=== PATIENT | female | born 2000 | race Caucasian/White ===

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

== ENCOUNTER 2018-02-25 16:33 | Emergency (ER) | payer BC ==
[2018-02-25 17:07] VITALS: BP 109/65
--- NOTE | 2018-02-25 17:26 | ED ---
Skin Complaint - HPI Summary HPI Summary: 17-year-old female presents with pruritic rash to bilateral upper legs that started yesterday. She does report that she recently changed detergents. Denies fever, chills, swelling lips, tongue, throat, difficulty breathing, changes in medications, cosmetics, lotions, soaps, or contact with environmental irritants. - History of Current Complaint Chief Complaint: UCSkin Time Seen by Provider: 02/25/18 17:05 Stated Complaint: SKIN COMPLAINT Hx Obtained From: Patient Hx Last Menstrual Period: mirena IUD Onset/Duration: Started Days Ago - 1 Current Severity: Mild Pain Intensity: 1 Skin Location: Other: - Bilateral upper legs Character: Pruritus, Redness Aggravating Symptom(s): Nothing Alleviating Symptom(s): Nothing - Allergy/Home Medications Allergies/Adverse Reactions: Allergies Allergy/AdvReac Type Severity Reaction Status Date / Time apple Allergy Rash Verified 02/25/18 17:04 sulfamethoxazole Allergy Rash Verified 02/25/18 17:04 [From Bactrim] trimethoprim [From Bactrim] Allergy Rash Verified 02/25/18 17:04 PMH/Surg Hx/FS Hx/Imm Hx Previously Healthy: Yes - denies significant past medical history Cardiovascular History: Denies: Hx Pacemaker/ICD Neurological History: Reports: Other Neuro Impairments/Disorders - CURENT SYMPTOMS: HEADACHES WITH SLURRED SPEECH X 5 MONTHS Psychiatric History: Denies: Hx Panic Disorder - Surgical History Surgery Procedure, Year, and Place: EAR TUBES Infectious Disease History: No Infectious Disease History: Denies: History Other Infectious Disease, Traveled Outside the [place] in Last 30 Days - Family History Family History: Noncontributory - Social History Occupation: Employed Full-time Lives: With Family Alcohol Use: Rare Substance Use Type: Reports: None Smoking Status (MU): Never Smoked Tobacco Review of Systems Constitutional: Negative ENT: Negative Cardiovascular: Negative Respiratory: Negative Skin: Other - See HPI All Other Systems Reviewed And Are Negative: Yes Physical Exam Triage Information Reviewed: Yes Vital Signs On Initial Exam: Initial Vitals Temp Pulse Resp BP Pulse Ox 98.5 F 82 16 109/65 99 02/25/18 17:01 02/25/18 17:01 02/25/18 17:01 02/25/18 17:01 02/25/18 17:01 Vital Signs Reviewed: Yes Appearance: Positive: Well-Appearing, No Pain Distress, Well-Nourished Skin: Positive: Warm, Skin Color Reflects Adequate Perfusion, Dry, Other - Eythematous, pruritic rash to proximal bilateral upper legs. No weeping, scaling , or drainage noted. ENT: Positive: Other - Airway intact Respiratory/Lung Sounds: Positive: Clear to Auscultation, Breath Sounds Present Cardiovascular: Positive: Normal, RRR, S1, S2 Neurological: Positive: Alert, Oriented to Person Place, Time Diagnostics - Vital Signs Vital Signs Temp Pulse Resp BP Pulse Ox 02/25/18 17:01 98.5 F 82 16 109/65 99 - Laboratory Lab Statement: Any lab studies that have been ordered have been reviewed, and results considered in the medical decision making process. Course/Dx - Course Course Of Treatment: 17 year old female with onset of pruritic rash to bilateral upper legs. Patient identifies a change in laundry detergent prior to onset and rash consistent with a contact dermatitis therefore will treat with topical steroid. She is to return for any worsening or persistence of symptoms. - Diagnoses Provider Diagnoses: Contact dermatitis Discharge - Sign-Out/Discharge Documenting (check all that apply): Patient Departure All imaging exams completed and their final reports reviewed: No Studies - Discharge Plan Condition: Stable Disposition: HOME Prescriptions: Clobetasol 0.05% OINT* 1 applic TOPICAL BID #1 tube Patient Education Materials: Contact Dermatitis (ED) Referrals: No Primary Care Phys,NOPCP [Primary Care Provider] - Additional Instructions: Your rash appears to be a contact dermatitis. I suspect it may be related to the change in your detergent recently. I would stop using this detergent and rewash any clothing that was washed in the new detergent in case this is the cause. Apply a thin layer of clobatesol ointment to the affected areas twice a day. Do not use for more than 2 weeks. May use over the counter diphenhydramine (Benadryl) as needed for itching. This may cause drowsiness. Return or follow up with primary care provider if there is no improvement in symptoms. Sooner if symptoms worsen. - Billing Disposition and Condition Condition: STABLE Disposition: Home
== END 2018-02-25 17:31 | disposition home or self-care (01) ==
LOC: UCCORT 16:33
DX: L25.9 Unspecified contact dermatitis, unspecified cause (principal); Z88.1 Allergy status to other antibiotic agents
CPT/HCPCS: 99212; G0463

== ENCOUNTER 2018-03-04 08:58 | Emergency (ER) | payer BC ==
[2018-03-04 09:38] VITALS: BP 113/77
--- NOTE | 2018-03-04 10:03 | UC ---
Throat Pain/Nasal Benito HPI - HPI Summary HPI Summary: The patient is a 17-year-old female with sore throat and swollen glands 48 hours. She has had a chronic cough. He denies any fever or chills. She has had mono in the past. 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 - History of Current Complaint Chief Complaint: UCGeneralIllness Stated Complaint: LYMPH NODES SWOLLEN/SORE THROAT Time Seen by Provider: 03/04/18 09:43 Hx Obtained From: Patient Hx Last Menstrual Period: mirena IUD Onset/Duration: Gradual Onset, Lasting Days Severity: Mild Pain Intensity: 4 Pain Scale Used: 0-10 Numeric Cough: Nonproductive Associated Signs & Symptoms: Positive: Negative - Epiglottits Risk Factors Epiglottis Risk Factors: Negative - Allergies/Home Medications Allergies/Adverse Reactions: Allergies Allergy/AdvReac Type Severity Reaction Status Date / Time apple Allergy Rash Verified 03/04/18 09:29 sulfamethoxazole Allergy Rash Verified 03/04/18 09:29 [From Bactrim] trimethoprim [From Bactrim] Allergy Rash Verified 03/04/18 09:29 Home Medications: Home Medications D-Methorphan/PE/Acetaminophen [Daytime Cold Multi-Symp Gelcap] 1 dose PO ONCE [History Confirmed 03/04/18] PMH/Surg Hx/FS Hx/Imm Hx Previously Healthy: Yes - Surgical History Surgical History: Yes Surgery Procedure, Year, and Place: EAR TUBES - Family History Known Family History: Negative: Cardiac Disease, Hypertension Family History: Noncontributory - Social History Alcohol Use: Rare Substance Use Type: None Smoking Status (MU): Never Smoked Tobacco - Immunization History Vaccination Up to Date: Yes Review of Systems Constitutional: Negative Skin: Negative Eyes: Negative ENT: Sore Throat Respiratory: Cough Cardiovascular: Negative Gastrointestinal: Negative Genitourinary: Negative Motor: Negative Neurovascular: Negative Musculoskeletal: Negative Neurological: Negative Psychological: Negative All Other Systems Reviewed And Are Negative: Yes Physical Exam Triage Information Reviewed: Yes Appearance: Well-Appearing, No Pain Distress, Well-Nourished Vital Signs: Initial Vital Signs Temp 98.9 F 03/04/18 09:29 Pulse 98 03/04/18 09:29 Resp 16 03/04/18 09:29 BP 113/77 03/04/18 09:29 Pulse Ox 100 03/04/18 09:29 Vital Signs Reviewed: Yes Eyes: Positive: Conjunctiva Clear ENT: Positive: Pharyngeal erythema, Tonsillar swelling, Tonsillar exudate, Uvula midline. Negative: Trismus, Muffled voice, Hoarse voice Neck: Positive: Supple, Nontender, Enlarged Nodes @ - ant cerv Respiratory: Positive: Lungs clear, Normal breath sounds, No respiratory distress, No accessory muscle use Cardiovascular: Positive: RRR, No Murmur Bowel Sounds: Positive: Present Musculoskeletal: Positive: ROM Intact, No Edema Neurological: Positive: Alert Psychological Exam: Normal Skin Exam: Normal Diagnostics - Laboratory Diagnostic Studies Completed/Ordered: strep (-) Throat Pain/Nasal Course/Dx - Differential Dx/Diagnosis Provider Diagnoses: acute exudative tonsillitis Discharge - Sign-Out/Discharge Documenting (check all that apply): Patient Departure All imaging exams completed and their final reports reviewed: No Studies - Discharge Plan Condition: Stable Disposition: HOME Prescriptions: Cephalexin CAP* [Keflex CAP*] 500 mg PO BID #20 cap Patient Education Materials: Tonsillitis (ED) Forms: *Work Release Referrals: Danyell Verduzco MD [Primary Care Provider] - 3 Days (if not better) Additional Instructions: rest fluids tylenol or advil for pain - Billing Disposition and Condition Condition: STABLE Disposition: Home
== END 2018-03-04 10:10 | disposition home or self-care (01) ==
LOC: UCCORT 08:58
DX: J03.90 Acute tonsillitis, unspecified (principal); Z88.1 Allergy status to other antibiotic agents
CPT/HCPCS: 87651; 99212; G0463

== ENCOUNTER 2018-06-12 17:02 | Emergency (ER) | payer BC ==
[2018-06-12 17:54] VITALS: BP 116/72
[2018-06-12] MEDS ORDERED: Ondansetron ODT TAB* 4 MG PO ONE (17:56)
--- NOTE | 2018-06-12 18:12 | UC ---
FLU HPI - HPI Summary HPI Summary: Pt c/o sudden onset of nausea, vomiting, diarrhea, body aches X 1 day. - History of Current Complaint Chief Complaint: UCGI Stated Complaint: VOMITING Time Seen by Provider: 06/12/18 18:06 Hx Obtained From: Patient Hx Last Menstrual Period: mirana ?: No Onset/Duration: Sudden Onset, Still Present Severity Currently: Moderate Severity Initially: Moderate Pain Intensity: 0 Associated Signs & Symptoms: Positive: Fever, Headache, Vomiting, Diarrhea Related Hx: Possible Flu/Infectious Exposure - Risk Factors Influenza Risk Factors: Negative - Allergy/Home Medications Allergies/Adverse Reactions: Allergies Allergy/AdvReac Type Severity Reaction Status Date / Time apple Allergy Rash Verified 06/12/18 17:54 sulfamethoxazole Allergy Rash Verified 06/12/18 17:54 [From Bactrim] trimethoprim [From Bactrim] Allergy Rash Verified 06/12/18 17:54 PMH/Surg Hx/FS Hx/Imm Hx Previously Healthy: Yes - Surgical History Surgical History: Yes Surgery Procedure, Year, and Place: EAR TUBES - Family History Known Family History: Negative: Cardiac Disease, Hypertension Family History: Noncontributory - Social History Occupation: Employed Full-time Lives: With Family Alcohol Use: Rare Substance Use Type: None Smoking Status (MU): Never Smoked Tobacco Have You Smoked in the Last Year: No - Immunization History Vaccination Up to Date: Yes Review of Systems All Other Systems Reviewed And Are Negative: Yes Constitutional: Positive: Fever, Chills, Fatigue Skin: Positive: Negative Eyes: Positive: Negative ENT: Positive: Negative Respiratory: Positive: Negative Cardiovascular: Positive: Negative Gastrointestinal: Positive: Abdominal Pain, Vomiting, Diarrhea, Nausea Genitourinary: Positive: Negative Motor: Positive: Negative Neurovascular: Positive: Negative Musculoskeletal: Positive: Myalgia Neurological: Positive: Headache Psychological: Positive: Negative Is Patient Immunocompromised?: No Physical Exam Triage Information Reviewed: Yes Appearance: Ill-Appearing Vital Signs: Initial Vital Signs Temp 97.0 F 06/12/18 17:52 Pulse 89 06/12/18 17:52 Resp 16 06/12/18 17:52 BP 116/72 06/12/18 17:52 Pulse Ox 99 06/12/18 17:52 Vital Signs Reviewed: Yes Eye Exam: Normal ENT Exam: Normal Dental Exam: Normal Neck exam: Normal Respiratory Exam: Normal Respiratory: Positive: No respiratory distress Abdominal Exam: Other - c/o generalizeed tenderness Musculoskeletal Exam: Normal Neurological Exam: Normal Psychological Exam: Normal Skin Exam: Normal Flu Course/Dx - Differential Dx/Diagnosis Differential Diagnosis/HQI/PQRI: Influenza Provider Diagnosis: Gastroenteritis Discharge - Sign-Out/Discharge Documenting (check all that apply): Patient Departure All imaging exams completed and their final reports reviewed: No Studies - Discharge Plan Condition: Stable Disposition: HOME Prescriptions: Ondansetron HCl [Zofran] 8 mg PO Q8H PRN #15 tablet PRN Reason: Nausea Patient Education Materials: Gastroenteritis (ED), Acute Nausea and Vomiting ( ED), Acute Diarrhea (ED) Referrals: Danyell Verduzco MD [Primary Care Provider] - If Needed - Billing Disposition and Condition Condition: STABLE Disposition: Home
== END 2018-06-12 18:17 | disposition home or self-care (01) ==
LOC: UCCORT 17:02
DX: K52.9 Noninfective gastroenteritis and colitis, unspecified (principal); M79.10 Myalgia, unspecified site; Z91.018 Allergy to other foods
CPT/HCPCS: 99212; A9270-GY; G0463

== ENCOUNTER 2018-11-30 12:05 | Emergency (ER) | payer BC ==
--- NOTE | 2018-11-30 12:16 | UC ---
Complaint Female HPI - HPI Summary HPI Summary: Burning on urination with bloody urine today. No hx of frequent UTI's. - History Of Current Complaint Stated Complaint: URINARY COMPLAINT Time Seen by Provider: 11/30/18 12:14 Hx Obtained From: Patient Hx Last Menstrual Period: mirana ?: No Onset/Duration: Gradual Onset Timing: Intermittent Severity Initially: Mild Severity Currently: Mild Character: Burning Aggravating Factor(s): Urination Associated Signs And Symptoms: Positive: Negative. Negative: Vaginal Bleeding/ Discharge, Vaginal Discharge - Allergies/Home Medications Allergies/Adverse Reactions: Allergies Allergy/AdvReac Type Severity Reaction Status Date / Time apple Allergy Rash Verified 11/30/18 12:13 sulfamethoxazole Allergy Rash Verified 11/30/18 12:13 [From Bactrim] trimethoprim [From Bactrim] Allergy Rash Verified 11/30/18 12:13 PMH/Surg Hx/FS Hx/Imm Hx Previously Healthy: Yes - Surgical History Surgical History: Yes Surgery Procedure, Year, and Place: EAR TUBES - Family History Known Family History: Negative: Cardiac Disease, Hypertension Family History: Noncontributory - Social History Alcohol Use: Rare Substance Use Type: None Smoking Status (MU): Never Smoked Tobacco Have You Smoked in the Last Year: No - Immunization History Vaccination Up to Date: Yes Review of Systems All Other Systems Reviewed And Are Negative: Yes Genitourinary: Positive: Dysuria, Hematuria, Frequency, Urgency. Negative: Vaginal/Penile Burning, Vaginal/Penile Itching, Vaginal/Penile Discharge, Vaginal/Penile Pain, Vaginal/Penile Tenderness Is Patient Immunocompromised?: No Physical Exam Triage Information Reviewed: Yes Appearance: Well-Appearing, No Pain Distress, Well-Nourished Vital Signs Reviewed: Yes Eyes: Positive: Conjunctiva Clear Respiratory: Positive: Lungs clear, Normal breath sounds, No respiratory distress, No accessory muscle use Cardiovascular: Positive: RRR, No Murmur, Pulses Normal, Brisk Capillary Refill Abdomen Description: Positive: Nontender, No Organomegaly, Soft. Negative: CVA Tenderness (R), CVA Tenderness (L) Bowel Sounds: Positive: Present Musculoskeletal Exam: Normal Neurological Exam: Normal Psychological Exam: Normal Skin Exam: Normal Complaint Female Dx - Course Course Of Treatment: U/A positive for UTI. Urine HCG negative. Pt. comfortable here. - Differential Dx/Diagnosis Provider Diagnosis: UTI (urinary tract infection) Discharge - Sign-Out/Discharge Documenting (check all that apply): Patient Departure All imaging exams completed and their final reports reviewed: No Studies - Discharge Plan Condition: Fair Disposition: HOME Prescriptions: Cephalexin CAP* [Keflex 500 CAP*] 500 mg PO TID 7 Days #21 cap Phenazopyridine TAB* [Pyridium 100 mg TAB*] 100 mg PO TID PRN #6 tab PRN Reason: Pain Patient Education Materials: Urinary Tract Infection in Women (DC) Referrals: Danyell Verduzco MD [Primary Care Provider] - Additional Instructions: Increase fluids, go to ER if you develop fever, chills, back pain, vomiting. - Billing Disposition and Condition Condition: FAIR Disposition: Home
[2018-11-30 12:18] VITALS: BP 107/65
[2018-11-30] MEDS ORDERED: Phenazopyridine TAB* 100 MG PO ONE (12:23)
== END 2018-11-30 12:49 | disposition home or self-care (01) ==
LOC: UCCORT 12:05
DX: N39.0 Urinary tract infection, site not specified (principal); R31.9 Hematuria, unspecified
CPT/HCPCS: 81003; 84702; 87077; 87086; 87186; 99212; A9270-GY; G0463

== ENCOUNTER 2019-04-12 14:24 | Emergency (ER) | payer BC, OTHER ==
[2019-04-12 14:53] VITALS: BP 103/52
--- NOTE | 2019-04-12 15:21 | UC ---
Complaint Female HPI - HPI Summary HPI Summary: 18-year-old female who has had burning on urination and frequency since yesterday. She did have some blood in her urine last evening so she went to the store and got some cranberry juice which helped symptoms. She continues to have the burning but no further blood. - History Of Current Complaint Chief Complaint: UCGU Stated Complaint: URINARY Time Seen by Provider: 04/12/19 15:07 Hx Obtained From: Patient Hx Last Menstrual Period: ?: No Onset/Duration: Gradual Onset Timing: Intermittent Severity Initially: Mild Severity Currently: Mild Pain Intensity: 4 Character: Burning Aggravating Factor(s): Urination Associated Signs And Symptoms: Positive: Negative - Allergies/Home Medications Allergies/Adverse Reactions: Allergies Allergy/AdvReac Type Severity Reaction Status Date / Time apple Allergy Rash Verified 04/12/19 14:47 Sulfa (Sulfonamide Allergy Unknown Verified 04/12/19 14:47 Antibiotics) Reaction Details sulfamethoxazole Allergy Rash Verified 04/12/19 14:47 [From Bactrim] trimethoprim [From Bactrim] Allergy Rash Verified 04/12/19 14:47 PMH/Surg Hx/FS Hx/Imm Hx Previously Healthy: Yes - Surgical History Surgical History: Yes Surgery Procedure, Year, and Place: EAR TUBES - Family History Known Family History: Negative: Cardiac Disease, Hypertension Family History: Noncontributory - Social History Lives: With Family Alcohol Use: Rare Substance Use Type: None Smoking Status (MU): Former Smoker Have You Smoked in the Last Year: No When Did the Patient Quit Smoking/Using Tobacco: July 2016 - Immunization History Vaccination Up to Date: Yes Review of Systems All Other Systems Reviewed And Are Negative: Yes Genitourinary: Positive: Dysuria, Hematuria - Mild hematuria last evening which resolved after drinking cranberry juice today., Frequency, Urgency Is Patient Immunocompromised?: No Physical Exam Triage Information Reviewed: Yes Appearance: Well-Appearing, No Pain Distress, Well-Nourished Vital Signs: Initial Vital Signs Temp 99.1 F 04/12/19 14:47 Pulse 85 04/12/19 14:47 Resp 16 04/12/19 14:47 BP 103/52 04/12/19 14:47 Pulse Ox 100 04/12/19 14:47 Vital Signs Reviewed: Yes Eyes: Positive: Conjunctiva Clear Respiratory: Positive: Lungs clear, Normal breath sounds, No respiratory distress, No accessory muscle use Cardiovascular: Positive: RRR, No Murmur, Pulses Normal, Brisk Capillary Refill Abdomen Description: Positive: Nontender, No Organomegaly, Soft. Negative: CVA Tenderness (R), CVA Tenderness (L), Distended, Guarding, Hepatomegaly, McBurney' s Point Tenderness, Splenomegaly Bowel Sounds: Positive: Present Musculoskeletal Exam: Normal Neurological Exam: Normal Psychological Exam: Normal Skin Exam: Normal Complaint Female Dx - Course Course Of Treatment: Patient is comfortable here. I'm going to treat her with Macrobid 100 mg by mouth twice a day 7 days, with a definite follow-up to her primary care provider if no improvement in 2 or 3 days. - Differential Dx/Diagnosis Provider Diagnosis: UTI (urinary tract infection) Discharge ED - Sign-Out/Discharge Documenting (check all that apply): Patient Departure All imaging exams completed and their final reports reviewed: No Studies - Discharge Plan Condition: Good Disposition: HOME Prescriptions: Nitrofurantoin Monohyd/M-Cryst [Macrobid 100 mg Capsule] 100 mg PO BID 10 Days # 20 cap Patient Education Materials: Urinary Tract Infection in Women (DC) Referrals: Danyell Verduzco MD [Primary Care Provider] - Additional Instructions: Increase fluids, follow-up with your primary care provider if no improvement in 2 or 3 days. Go to the emergency room if you develop fever, chills, back pain and/or vomiting and unable to keep the medicine down. - Billing Disposition and Condition Condition: GOOD Disposition: Home
== END 2019-04-12 15:27 | disposition home or self-care (01) ==
LOC: UCCORT 14:24
DX: N39.0 Urinary tract infection, site not specified (principal); R31.9 Hematuria, unspecified; Z91.018 Allergy to other foods; Z88.2 Allergy status to sulfonamides
CPT/HCPCS: 81003; 84702; 87077; 87086; 87186; 99212; G0463

== ENCOUNTER 2019-04-27 18:35 | Emergency (ER) | payer OTHER ==
[2019-04-27 18:49] VITALS: BP 105/63
--- NOTE | 2019-04-27 19:00 | UC ---
Throat Pain/Nasal Benito HPI - HPI Summary HPI Summary: 18 y/o female presents to the urgent care c/o Bilateral jaw pain and tension radiating into her neck. Pt state she has a sore throat, headache, post nasal drip. Symptoms x2 days. Pt has dental hx of JMDT. - History of Current Complaint Chief Complaint: UCDentalProblem Stated Complaint: JAW/SINUS/NECK PAIN,MATTHEW Time Seen by Provider: 04/27/19 18:58 Hx Obtained From: Patient Hx Last Menstrual Period: 04/20/19 Pain Intensity: 8 - Allergies/Home Medications Allergies/Adverse Reactions: Allergies Allergy/AdvReac Type Severity Reaction Status Date / Time apple Allergy Rash Verified 04/27/19 18:44 Sulfa (Sulfonamide Allergy Unknown Verified 04/27/19 18:44 Antibiotics) Reaction Details sulfamethoxazole Allergy Rash Verified 04/27/19 18:44 [From Bactrim] trimethoprim [From Bactrim] Allergy Rash Verified 04/27/19 18:44 Home Medications: Home Medications Ibuprofen TAB* [Advil TAB*] 400 mg PO ONCE 04/27/19 [History Confirmed 04/27/19] PMH/Surg Hx/FS Hx/Imm Hx - Surgical History Surgical History: Yes Surgery Procedure, Year, and Place: EAR TUBES - Family History Known Family History: Negative: Cardiac Disease, Hypertension Family History: Noncontributory - Social History Alcohol Use: Rare Substance Use Type: None Smoking Status (MU): Former Smoker Have You Smoked in the Last Year: No When Did the Patient Quit Smoking/Using Tobacco: July 2016 - Immunization History Vaccination Up to Date: Yes Physical Exam Vital Signs: Initial Vital Signs Temp 99.4 F 04/27/19 18:44 Pulse 86 04/27/19 18:44 Resp 16 04/27/19 18:44 BP 105/63 04/27/19 18:44 Pulse Ox 99 04/27/19 18:44 Throat Pain/Nasal Course/Dx - Differential Dx/Diagnosis Differential Diagnosis/HQI/PQRI: Laryngitis, Mononucleosis, Otitis Media, Pharyngitis, Sinusitis, Tonsillitis, URI, Other - TMJ Provider Diagnosis: Acute bacterial sinusitis, Pharyngitis Discharge ED - Sign-Out/Discharge Documenting (check all that apply): Patient Departure - d/C home All imaging exams completed and their final reports reviewed: No Studies - Discharge Plan Condition: Stable Disposition: HOME Prescriptions: Amoxicillin PO (*) [Amoxicillin 875 MG (*)] 875 mg PO BID #19 tab Fluticasone NASAL SPRAY 50MCG* [Flonase NASAL SPRAY 50MCG*] 2 spray BOTH NARES DAILY #1 btl Patient Education Materials: Sinusitis (ED), Pharyngitis (ED) Referrals: [facility] [place] [facility]ERR[facility] [Outside] - 3 Days Additional Instructions: 1- Please increase fluid intake and rest. take full course of antibiotics to avoid resistance. Take yogurts w/ probiotics or Culturelle to protect your GI system 2-Use Flonase as directed to help drain fluid. Also buy saline drops to clear sinuses 3-Continue taking Ibuprofen PO 600mg and alternate w/ Tylenol PO q6-8hrs prns after meals top alleviate fever, swelling and pain 4-Please f/u w/ your PCP in 3 days if symptoms do not improve for further management and treatment - Billing Disposition and Condition Condition: STABLE Disposition: Home
[2019-04-27] MEDS ORDERED: Acetaminophen TAB* 325 MG PO ONE (19:15)
[2019-04-27] MEDS ORDERED: Amoxicillin PO (*) 500 MG CAP PO ONE (19:16)
== END 2019-04-27 20:03 | disposition home or self-care (01) ==
LOC: UCCORT 18:35
DX: J01.90 Acute sinusitis, unspecified (principal); J02.9 Acute pharyngitis, unspecified; B96.89 Other specified bacterial agents as the cause of diseases classified elsewhere; Z91.018 Allergy to other foods; Z88.2 Allergy status to sulfonamides; Z88.1 Allergy status to other antibiotic agents; Z87.891 Personal history of nicotine dependence
CPT/HCPCS: 87651; 99212; A9270-GY; G0463

== ENCOUNTER 2019-06-17 16:28 | Emergency (ER) | payer OTHER ==
--- OUTSIDE RECORDS SUMMARY | 2019-06-17 17:09 | XMS REPORT | Continuity of Care Document ---
:2000 External Reference #:[id number] Author Name Power Azevedo M.D. (transmitted by agent of provider Catie Dodson) Address [address] [place] [address] Problems Description No Information Available Social History Type Date Description Comments Sex Unknown Tobacco Use Start: Unknown End: Used To Smoke Cigarettes But Unknown Quit. ETOH Use Rare Use Of Alcohol Recreational Drug Use Has Used In Past Allergies, Adverse Reactions, Alerts Active Allergies Reaction Severity Comments Date sulfa 05/27/2019 Medications Active Medications SIG Qnty Indications Ordering Provider Date Doxycycline Hyclate one tab twice Unknown 100mg daily 10 days Tablets Immunizations Description No Information Available Vital Signs Date Vital Result Comment 05/27/2019 4:31pm Weight 153.00 lb Height 66 inches 5'6" BMI (Body Mass Index) 24.7 kg/m2 BP Systolic 94 mmHg BP Diastolic 60 mmHg Heart Rate 83 /min O2 % BldC Oximetry 96 % Body Temperature 98.3 F Pain Level 0 Results Description No Information Available Procedures Description No Information Available Medical Devices Description No Information Available Encounters Description No Information Available Assessments Description No Information Available Plan of Treatment No Information Available Functional Status Description No Information Available Mental Status Description No Information Available Referrals Description No Information Available
--- OUTSIDE RECORDS SUMMARY | 2019-06-17 17:09 | XMS REPORT | Continuity of Care Document ---
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 - Family Problems Description No Information Available Social History Type Date Description Comments Sex Unknown Tobacco Use Start: Unknown Patient denies history of smoking Smoking Status Reviewed: 05/22/19 Patient denies history of smoking Allergies, Adverse Reactions, Alerts Description No Known Drug Allergies Medications Active Medications SIG Qnty Indications Ordering Provider Date Doxycycline Hyclate take 1 tablet by 14caps J01.10 [place], 05/22/2019 mouth twice a Vilma Ngo, FINANCIAL SYSTEMS ANALYST 100mg Capsules day x 7 days Prednisone 1 tablet daily x 4tabs J01.10 [place], 05/22/2019 20mg Tablets 4 days Vilma Huber, FINANCIAL SYSTEMS ANALYST History Medications No Active Medications Unknown 05/22/2019 - 05/22/2019 Immunizations Description No Information Available Vital Signs Date Vital Result Comment 05/22/2019 4:41pm BP Systolic 113 mmHg BP Diastolic 73 mmHg Body Temperature 98.7 F Heart Rate 85 /min Respiratory Rate 18 /min Weight 171.25 lb O2 % BldC Oximetry 97 % Results Description No Information Available Procedures Description No Information Available Medical Devices Description No Information Available Encounters Type Date Location Provider Dx Diagnosis Office Visit 05/22/2019 Walk In [facility] [place] J01.10 Acute frontal 4:30p Vilma Ngo, FINANCIAL SYSTEMS ANALYST sinusitis, unspecified Assessments Date Code Description Provider 05/22/2019 J01.10 Acute frontal sinusitis, unspecified Tripathi-Helm, Vilma M., MARIAN Plan of Treatment 05/22/2019 - Vilma Moody, FNPJ01.10 Acute frontal sinusitis, unspecifiedNew Medication:Doxycycline Hyclate 100 mg - take 1 tablet by mouth twice a day x 7 daysPrednisone 20 mg - 1 tablet daily x 4 daysComments:Use doxycyline and prednisone as directed. Get lots of rest. Maintain good clear fluid intake to stay well hydrated. Frequent handwashing to prevent spread of germs. Please avoid exposure to tobacco smoke and/or polluted air. You can use OTC cough and cold medications such as Mucinex to help with symptoms. Please follow-up with your primary care provider within 1 week for recheck. You can return to work or school when fever free for 24 hours without the use of fever reducing medication. Functional Status Description No Information Available Mental Status Description No Information Available Referrals Description No Information Available
[2019-06-17 17:16] VITALS: BP 102/64
--- NOTE | 2019-06-17 17:25 | UC ---
Throat Pain/Nasal Benito HPI - HPI Summary HPI Summary: 19 yo female with sore throat x 1 day no n/v no CP or sob - History of Current Complaint Chief Complaint: UCGeneralIllness Stated Complaint: SORE THROAT Time Seen by Provider: 06/17/19 17:12 Hx Obtained From: Patient Hx Last Menstrual Period: 04/20/19 Onset/Duration: Gradual Onset Severity: Mild Pain Intensity: 2 Pain Scale Used: 0-10 Numeric Cough: None Associated Signs & Symptoms: Positive: Nasal Discharge - Epiglottits Risk Factors Epiglottis Risk Factors: Negative - Allergies/Home Medications Allergies/Adverse Reactions: Allergies Allergy/AdvReac Type Severity Reaction Status Date / Time apple Allergy Rash Verified 06/17/19 17:16 Sulfa (Sulfonamide Allergy Unknown Verified 06/17/19 17:16 Antibiotics) Reaction Details sulfamethoxazole Allergy Rash Verified 06/17/19 17:16 [From Bactrim] trimethoprim [From Bactrim] Allergy Rash Verified 06/17/19 17:16 Home Medications: Home Medications Acetaminophen TAB* [Tylenol TAB*] 975 mg PO Q4H PRN 06/17/19 [History Confirmed 06/17/19] PMH/Surg Hx/FS Hx/Imm Hx Previously Healthy: Yes - Surgical History Surgical History: Yes Surgery Procedure, Year, and Place: EAR TUBES - Family History Known Family History: Positive: Diabetes Negative: Cardiac Disease, Hypertension Family History: cancer - Social History Alcohol Use: Rare Substance Use Type: None Smoking Status (MU): Former Smoker Have You Smoked in the Last Year: No When Did the Patient Quit Smoking/Using Tobacco: July 2016 - Immunization History Vaccination Up to Date: Yes Review of Systems All Other Systems Reviewed And Are Negative: Yes Constitutional: Positive: Negative Skin: Positive: Negative Eyes: Positive: Negative ENT: Positive: Sore Throat Respiratory: Positive: Negative Cardiovascular: Positive: Negative Gastrointestinal: Positive: Negative Genitourinary: Positive: Negative Motor: Positive: Negative Neurovascular: Positive: Negative Musculoskeletal: Positive: Negative Neurological: Positive: Headache Psychological: Positive: Negative Physical Exam Triage Information Reviewed: Yes Appearance: Well-Appearing, No Pain Distress, Well-Nourished Vital Signs: Initial Vital Signs Temp 99.8 F 06/17/19 17:11 Pulse 98 06/17/19 17:11 Resp 18 06/17/19 17:11 BP 102/64 06/17/19 17:11 Pulse Ox 98 06/17/19 17:11 Vital Signs Reviewed: Yes Eyes: Positive: Conjunctiva Clear ENT: Positive: Hearing grossly normal, Pharyngeal erythema, TMs normal, Uvula midline. Negative: Nasal congestion, Nasal drainage, Tonsillar swelling, Tonsillar exudate, Trismus, Muffled voice, Hoarse voice Dental Exam: Normal Neck: Positive: Supple, Enlarged Nodes @ - ant cerv Respiratory: Positive: Lungs clear, Normal breath sounds, No respiratory distress, No accessory muscle use Cardiovascular: Positive: RRR, No Murmur, Pulses Normal Abdomen Description: Positive: Nontender, No Organomegaly Bowel Sounds: Positive: Present Musculoskeletal: Positive: ROM Intact, No Edema Neurological: Positive: Alert Psychological Exam: Normal Skin Exam: Normal Diagnostics - Laboratory Lab Results: strep (-), influenza (-) Throat Pain/Nasal Course/Dx - Differential Dx/Diagnosis Provider Diagnosis: Pharyngitis Discharge ED - Sign-Out/Discharge Documenting (check all that apply): Patient Departure All imaging exams completed and their final reports reviewed: No Studies - Discharge Plan Condition: Stable Disposition: HOME Patient Education Materials: Pharyngitis (ED) Additional Instructions: rest fluids tylenol or advil recheck in 4 days if not better - Billing Disposition and Condition Condition: STABLE Disposition: Home
[2019-06-17 17:53] LABS: Influenza A Molecular Negative (Negative); Influenza B Molecular Negative (Negative)
== END 2019-06-17 18:12 | disposition home or self-care (01) ==
LOC: UCCORT 16:28
DX: J02.9 Acute pharyngitis, unspecified (principal); R51 Headache; Z88.2 Allergy status to sulfonamides; Z91.018 Allergy to other foods; Z87.891 Personal history of nicotine dependence
CPT/HCPCS: 87651; 99211; G0463